=== PATIENT | male | born 1970 | race African-American/Black ===

== ENCOUNTER 2024-07-25 08:07 | Inpatient (IN) | payer OTHER ==
[2024-07-25 08:33] VITALS: BMI 23.7
[2024-07-25] MEDS ORDERED: MAGNESIUM HYDROX 2400MG/30ML ORAL SUSPENSION 30 ML CUP PO PRN (08:53)
[2024-07-25] MEDS ORDERED: DICYCLOMINE HCL 10 MG CAPSULE PO PRN (08:53)
[2024-07-25] MEDS ORDERED: IBUPROFEN 400 MG TABLET (FP) PO PRN (08:53)
[2024-07-25] MEDS ORDERED: NALOXONE (NARCAN) HCL 4 MG/0.1 ML SPRAY NS PRN (08:53)
[2024-07-25] MEDS ORDERED: ONDANSETRON *ODT* 4 MG TABLET SL PRN (08:53)
[2024-07-25] MEDS ORDERED: ACETAMINOPHEN 325 MG TABLET (FP) PO PRN (08:53)
[2024-07-25] MEDS ORDERED: LOPERAMIDE HCL 2 MG CAPSULE PO PRN (08:53)
[2024-07-25] MEDS ORDERED: BENZOCAINE/MENTHOL (CHLORASEPTIC ) LOZENGE MM PRN (08:53)
[2024-07-25] MEDS ORDERED: BENZONATATE 200 MG CAPSULE PO PRN (08:53)
[2024-07-25] MEDS ORDERED: POLYETHYLENE GLYCOL (HEALTHYLAX) 3350 17 GM PACKET PO PRN (08:53)
[2024-07-25] MEDS ORDERED: guaiFENesin 600 MG TABLET.ER (FP) PO PRN (08:53)
[2024-07-25] MEDS ORDERED: NICOTINE 21 MG/24 HOURS TOPICAL PATCH ONE (10:26)
[2024-07-25] MEDS ORDERED: PRENATAL VITAMINS W/ FOLIC ACID TABLET (FP) PO ONE (10:26)
[2024-07-25] MEDS: NICOTINE 21 MG/24 HOURS TOPICAL PATCH TD SCH (10:32)
[2024-07-25] MEDS: PRENATAL VITAMINS W/ FOLIC ACID TABLET (FP) PO SCH (10:32)
[2024-07-25] MEDS: ENALAPRIL MALEATE 10 MG TABLET PO SCH (10:34)
[2024-07-25] MEDS: HYDROCHLOROTHIAZIDE 25 MG TABLET (FP) PO SCH (10:34)
[2024-07-25] MEDS: chlordiazePOXIDE HCL 25 MG CAPSULE PO PRN (10:59)
[2024-07-25] MEDS: NIFEdipine E.R 60 MG TABLET PO SCH (10:59)
[2024-07-25] MEDS: chlordiazePOXIDE HCL 25 MG CAPSULE PO SCH (17:33)
[2024-07-25] MEDS: NICOTINE POLACRILEX 2 MG GUM BUC PRN (17:35)
[2024-07-25] MEDS: traZODone HCL 50 MG TABLET (FP) PO SCH (22:08)
[2024-07-25] MEDS: THIAMINE 100 MG TABLET PO SCH (22:09)
[2024-07-25] MEDS: MELATONIN 5 MG TABLETS PO SCH (22:09)
[2024-07-26] MEDS: MAG HYDROX/AL HYDROX/SIMETH 30 ML UNIT-DOSE CUP PO PRN (05:15)
[2024-07-26 15:46] LABS: POTASSIUM 3.6 mmol/L (3.5-5.1)
[2024-07-26 15:51] LABS: BLOOD UREA NITROGEN 19.8 mg/dL (7-18); CALCIUM 8.9 mg/dL (8.5-10.1)
[2024-07-26 15:53] LABS: CREATININE 0.9 mg/dL (0.55-1.3)
[2024-07-26 15:55] LABS: BILIRUBIN,TOTAL 0.5 mg/dL (0.2-1); TOT PROT 5.7 g/dl (6.4-8.2)
[2024-07-26 16:02] LABS: HEMATOCRIT 38.7 % (35.4-49); HEMOGLOBIN 13.4 GM/dL (11.7-16.9); MCH 30.6 pg (25.7-33.7); MCHC 34.5 g/dl (32.0-35.9); MEAN CELL VOLUME 88.7 fl (80-96); MEAN PLT VOLUME 11.2 fl (7.5-11.1); PLATELET COUNT 189 10^3/uL (134-434); RBC 4.37 M/mm3 (4.00-5.60); RDW 15.3 % (11.9-15.9); WHITE BLOOD COUNT 6.2 K/mm3 (4.0-10.0)
[2024-07-26] MEDS: METHOCARBAMOL 500 MG TABLET PO PRN (17:28)
[2024-07-26] MEDS: hydrOXYzine PAMOATE 25 MG CAPSULE (FP) PO PRN (17:28)
[2024-07-26] MEDS: cloNIDine HCL 0.1 MG TABLET PO PRN (22:24)
[2024-07-27] MEDS: BISMUTH SUBSALICYLATE 524 MG/30 ML PO PRN (01:56)
[2024-07-27] MEDS: chlordiazePOXIDE HCL 25 MG CAPSULE PO SCH (05:14)
[2024-07-27] MEDS: FAMOTIDINE 20 MG TABLET PO ONE (22:37)
[2024-07-28] MEDS ORDERED: chlordiazePOXIDE HCL 10 MG CAPSULE PO PRN
[2024-07-28] MEDS: chlordiazePOXIDE HCL 10 MG CAPSULE PO SCH (05:45)
[2024-07-28 13:44] LABS: HIV INTERPRETATION NEGATIVE (NEGATIVE)
[2024-07-29] MEDS: chlordiazePOXIDE HCL 10 MG CAPSULE PO SCH (05:50)
[2024-07-29] MEDS: IBUPROFEN 600 MG TABLET (FP) PO PRN (10:32)
[2024-07-29] MEDS: FAMOTIDINE 20 MG TABLET PO SCH (11:22)
[2024-07-30] MEDS: chlordiazePOXIDE HCL 10 MG CAPSULE PO ONE (05:59)
[2024-08-01 09:37] VITALS: RESP 18
[2024-08-01 13:45] VITALS: BP 147/90; PULSE 78; TEMP 97.1
== END 2024-08-01 14:39 | disposition home or self-care (01) | DRG 774 ==
LOC: YASAS 08:07 → Y6N 09:38
PROVIDERS: ADMIT Allergy & Immunology; ATTEND Surgery
PROC: HZ2ZZZZ Detoxification Services for Substance Abuse Treatment (ICD-10-PCS; principal; 2024-07-25)
DX: F10.230 Alcohol dependence with withdrawal, uncomplicated (principal); F14.20 Cocaine dependence, uncomplicated; F17.210 Nicotine dependence, cigarettes, uncomplicated; F19.982 Other psychoactive substance use, unspecified with psychoactive substance-induced sleep disorder; I10 Essential (primary) hypertension; R73.09 Other abnormal glucose; K21.9 Gastro-esophageal reflux disease without esophagitis; Z96.651 Presence of right artificial knee joint; Z86.19 Personal history of other infectious and parasitic diseases; Z56.0 Unemployment, unspecified
CPT/HCPCS: 36415; 80053; 80305; 80307; 82962; 85027; 86593; 86780; 87389; 93005; 93010

== ENCOUNTER 2025-03-12 12:07 | Inpatient (IN) | payer OTHER ==
[2025-03-12 12:30] VITALS: BMI 25.0
[2025-03-12] MEDS ORDERED: NALOXONE (NARCAN) HCL 4 MG/0.1 ML SPRAY NS PRN (13:12)
[2025-03-12] MEDS ORDERED: guaiFENesin 600 MG TABLET.ER (FP) PO PRN (13:12)
[2025-03-12] MEDS ORDERED: MAGNESIUM HYDROX 2400MG/30ML ORAL SUSPENSION 30 ML CUP PO PRN (13:12)
[2025-03-12] MEDS ORDERED: POLYETHYLENE GLYCOL (HEALTHYLAX) 3350 17 GM PACKET PO PRN (13:12)
[2025-03-12] MEDS ORDERED: BENZOCAINE/MENTHOL (CHLORASEPTIC ) LOZENGE MM PRN (13:12)
[2025-03-12] MEDS ORDERED: NICOTINE POLACRILEX 2 MG LOZENGE BC PRN (13:12)
[2025-03-12] MEDS ORDERED: LOPERAMIDE HCL 2 MG CAPSULE PO PRN (13:12)
[2025-03-12] MEDS ORDERED: BENZONATATE 200 MG CAPSULE PO PRN (13:12)
[2025-03-12] MEDS ORDERED: MAG HYDROX/AL HYDROX/SIMETH 30 ML UNIT-DOSE CUP ONE (14:13)
[2025-03-12] MEDS ORDERED: IBUPROFEN 600 MG TABLET (FP) PO ONE (14:14)
[2025-03-12] MEDS ORDERED: NICOTINE 7 MG/24 HOURS TOPICAL PATCH TD ONE (14:14)
[2025-03-12] MEDS: MAG HYDROX/AL HYDROX/SIMETH 30 ML UNIT-DOSE CUP PO PRN (14:17)
[2025-03-12] MEDS: NICOTINE 7 MG/24 HOURS TOPICAL PATCH TD SCH (14:17)
[2025-03-12] MEDS: IBUPROFEN 600 MG TABLET (FP) PO PRN (14:18)
[2025-03-12] MEDS: ENALAPRIL MALEATE 10 MG TABLET PO SCH (17:27)
[2025-03-12] MEDS: FAMOTIDINE 20 MG TABLET PO SCH (17:30)
[2025-03-12] MEDS: ATORVASTATIN CA 10 MG TABLET (FP) PO SCH (21:25)
[2025-03-12] MEDS: MELATONIN 5 MG TABLETS PO SCH (21:25)
[2025-03-12] MEDS: THIAMINE 100 MG TABLET PO SCH (21:25)
[2025-03-12] MEDS: hydrOXYzine PAMOATE 25 MG CAPSULE (FP) PO PRN (21:25)
[2025-03-13] MEDS: NIFEdipine E.R 60 MG TABLET PO SCH (10:54)
[2025-03-13] MEDS: PRENATAL VITAMINS W/ FOLIC ACID TABLET (FP) PO SCH (10:54)
[2025-03-13] MEDS: HYDROCHLOROTHIAZIDE 25 MG TABLET (FP) PO SCH (10:54)
[2025-03-13 11:21] LABS: MCHC 33.1 g/dl (32.3-36.5); MEAN CELL VOLUME 88.9 fl (79.0-92.2); MEAN PLT VOLUME 12.8 fl (9.4-12.4); RDW 14.0 % (12.2-16.1)
[2025-03-13 11:47] LABS: SGPT/ALT 45 U/L (13-61)
[2025-03-13 11:48] LABS: CO2 27 mmol/L (21-32); GLUCOSE,RANDOM 141 mg/dL (74-106)
[2025-03-13 11:49] LABS: TOT PROT 5.4 g/dl (6.4-8.2)
[2025-03-13 11:50] LABS: ALK PHOS 54 U/L (45-117); SGOT/AST 24 U/L (15-37)
[2025-03-13 11:51] LABS: CREATININE 1.0 mg/dL (0.55-1.3)
[2025-03-13] MEDS: HYDROCHLOROTHIAZIDE 25 MG TABLET (FP) PO ONE (13:29)
[2025-03-13] MEDS: NICOTINE POLACRILEX 2 MG GUM BUC PRN (13:29)
[2025-03-13] MEDS: NIFEdipine E.R 60 MG TABLET PO ONE (13:29)
[2025-03-13] MEDS: ENALAPRIL MALEATE 10 MG TABLET PO ONE (13:29)
[2025-03-13] MEDS: ACETAMINOPHEN 325 MG TABLET (FP) PO PRN (21:25)
[2025-03-13] MEDS: traZODone HCL 100 MG TABLET (FP) PO SCH (21:25)
[2025-03-15] MEDS: FAMOTIDINE 20 MG TABLET PO SCH (09:42)
[2025-03-15 15:49] LABS: URINE APPEARANCE CLEAR; URINE BILIRUBIN NEGATIVE (NEGATIVE); URINE COLOR YELLOW; URINE GLUCOSE (UA) NEGATIVE (NEGATIVE); URINE KETONE NEGATIVE (NEGATIVE); URINE LEUK ESTERASE NEGATIVE (NEGATIVE); URINE NITRITE NEGATIVE (NEGATIVE); URINE PROTEIN NEGATIVE (NEGATIVE); URINE UROBILINOGEN 0.2 mg/dL (0.2-1.0)
[2025-03-19] MEDS: IBUPROFEN 400 MG TABLET (FP) PO PRN (11:53)
[2025-03-20] MEDS: BACLOFEN 10 MG TABLET (FP) PO SCH (21:29)
[2025-03-26 23:54] LABS: HIV INTERPRETATION NEGATIVE (NEGATIVE)
[2025-03-27 08:53] VITALS: BP 126/78; PULSE 94; RESP 18; TEMP 97.8
== END 2025-03-27 09:32 | disposition home or self-care (01) | DRG 772 ==
LOC: YASAS 12:07 → Y3NR 17:09 → Y3E 03-13 16:25 → Y3NR 03-15 20:36 → Y3E 03-15 20:39
PROVIDERS: ADMIT Neuromusculoskeletal Medicine & OMM; ATTEND Psychiatry & Neurology Pain Medicine
PROC: HZ42ZZZ Group Counseling for Substance Abuse Treatment, Cognitive-Behavioral (ICD-10-PCS; principal; 2025-03-12)
DX: F14.20 Cocaine dependence, uncomplicated (principal); F10.20 Alcohol dependence, uncomplicated; I10 Essential (primary) hypertension; G47.00 Insomnia, unspecified
CPT/HCPCS: 36415; 80053; 80305; 80307; 81003; 82962; 85027; 86593; 86780; 87389; 87811; 93005; 93010; J0475